=== PATIENT | male | born 2000 | race Hispanic/Latino ===

== ENCOUNTER 2020-03-12 01:52 | Emergency (ER) | payer SELFPAY ==
--- NOTE | 2020-03-12 07:55 | RAD ---
EXAM: CHEST ONE VIEW HISTORY: Dyspnea, chest pressure COMPARISON: None FINDINGS: The cardiac silhouette and pulmonary vasculature are within normal limits. The lungs are clear. The o sseous structures are intact. IMPRESSION: No acute cardiopulmonary process.
== END 2020-03-12 02:34 | disposition home or self-care (01) ==
LOC: ERS 01:52
DX: R07.89 Other chest pain (principal); F41.9 Anxiety disorder, unspecified
CPT/HCPCS: 71045; 93005